=== PATIENT | male | born 1930 | race Caucasian/White ===

== ENCOUNTER 2016-12-11 09:46 | Inpatient (IN) | payer MEDICARE, OTHER ==
[~2016-12-11] VITALS: Ht 177.8 cm; Wt 60.1 kg
[~2016-12-11 09:46] MED LIST: AMOXICILLIN 8751 TAB PO; BETAMETHASONE0.1% TP; FAMVIR 500500 MG/TAB PO; NO HOME MEDICATIONS; NORCO 325 MG-51 TAB PO
[2016-12-11] MEDS ORDERED: SINEMET CR 50 M1 TER PO (12:10)
[2016-12-11] MEDS ORDERED: FLOMAX 0.40.4 MG/CAP PO (12:11)
[2016-12-11] MEDS ORDERED: ZESTORETIC 12.51 TAB PO (12:12)
[2016-12-11] MEDS ORDERED: COMTAN 200MG T200 MG PO (12:12)
[2016-12-11] MEDS ORDERED: EXELON9.5 MG/24 TD (12:13)
[2016-12-11] MEDS ORDERED: NEUPRO6 MG/24 HR TD (12:13)
[2016-12-11 13:17] VITALS: BP 117/56; PULSE 79; TEMP 98.8
[2016-12-11 13:24] LABS: PH 5 (5-8); SQUAMOUS EPITHELIAL None Seen /hpf; URINE APPEARANCE Hazy; URINE BACTERIA Rare /hpf; URINE BILIRUBIN Negative (NEGATIVE); URINE BLOOD 3+ (NEGATIVE); URINE COLOR Yellow; URINE GLUCOSE Negative (NEGATIVE); URINE KETONE Trace (NEGATIVE); URINE RBC >50 /hpf; URINE UROBILINOGEN Negative (NEGATIVE); URINE WBC 20-50 /hpf
[2016-12-11 16:14] VITALS: BP 118/46; PULSE 80; TEMP 98.6
[2016-12-11 17:04] VITALS: BP 122/48; PULSE 90
[2016-12-11 17:21] LABS: ADJUSTED CALCIUM 9.4 mg/dL (8.4-10.2); ALBUMIN 3.5 gm/dL (3.5-5.0); BILIRUBIN,TOTAL 1.7 mg/dL (0.0-1.0); CREATININE, serum 1.32 mg/dL (0.66-1.25); POTASSIUM 4.1 mmol/L (3.4-5.0); TOTAL PROTEIN 6.2 gm/dL (6.4-8.2)
[2016-12-11 17:51] LABS: THYROID STIMULATING HORMONE 0.325 uIU/mL (0.465-4.680)
[2016-12-11 20:29] VITALS: BP 113/48; PULSE 102; TEMP 98.9
[2016-12-12] VITALS (7 sets, daily range): BP systolic 107–152; BP diastolic 41–73; PULSE 82–106; TEMP 97.7–99.6
[2016-12-12 08:12] LABS: ADD PATHOLOGY DIFF REVIEW NO; HEMATOCRIT 40.1 % (42.0-52.0); HEMOGLOBIN 13.5 g/dl (13.5-18.0); MEAN CELL VOLUME 96 fl (80.0-100.0); MEAN CORPUSCULAR HEMOGLOBIN 32 pg (27.0-31.0); MEAN CORPUSCULAR HGB CONC 34 g/dl (33.0-37.0); MEAN PLATELET VOLUME 10.1 fl (7.4-10.4); PLATELET COUNT 167 K/mm3 (130-400); RED BLOOD COUNT 4.17 M/mm3 (4.20-5.60); WHITE BLOOD COUNT 15.1 K/mm3 (4.8-10.8)
[2016-12-12 08:50] LABS: CALCIUM 8.9 mg/dL (8.4-10.2); CREATININE, serum 1.18 mg/dL (0.66-1.25); POTASSIUM 3.9 mmol/L (3.4-5.0)
[2016-12-12 10:23] LABS: BAND 19 % (0-10); NEUTROPHILS 78 % (42.0-75.2); PLATELET ESTIMATE NORMAL (NORMAL); TOTAL CELLS COUNTED 100
[2016-12-12 13:54] LABS: TROPONIN-I 0.054 ng/mL (0.000-0.034)
[2016-12-13 07:19] LABS: HEMOGLOBIN 12.5 g/dl (13.5-18.0); MEAN CELL VOLUME 95 fl (80.0-100.0); MEAN CORPUSCULAR HEMOGLOBIN 32 pg (27.0-31.0); MEAN CORPUSCULAR HGB CONC 34 g/dl (33.0-37.0); MEAN PLATELET VOLUME 9.9 fl (7.4-10.4); PLATELET COUNT 170 K/mm3 (130-400); RED BLOOD COUNT 3.86 M/mm3 (4.20-5.60); REDCELL DISTRIBUTION WIDTH-CV 13.9 % (11.5-14.5); WHITE BLOOD COUNT 12.2 K/mm3 (4.8-10.8)
[2016-12-13 07:24] LABS: HEMATOCRIT 36.8 % (42.0-52.0)
[2016-12-13 07:35] LABS: CALCIUM 8.4 mg/dL (8.4-10.2); CREATININE, serum 1.1 mg/dL (0.66-1.25); POTASSIUM 3.5 mmol/L (3.4-5.0)
[2016-12-13 07:51] VITALS: BP 118/53; PULSE 74; TEMP 98.3
[2016-12-13 11:44] VITALS: BP 130/51; PULSE 74; TEMP 97.9
[2016-12-13 16:20] VITALS: BP 139/63; PULSE 90
[2016-12-13 20:21] VITALS: BP 152/71; PULSE 96; TEMP 97.5
[2016-12-14] VITALS (7 sets, daily range): BP systolic 104–169; BP diastolic 57–69; PULSE 71–93; TEMP 97.8–98.4
[2016-12-14] MEDS ORDERED: OMNICEF 300MG300 MG PO (10:00)
[2016-12-14] MEDS ORDERED: SINEMET 25/101 UDTAB PO ×5 (10:03→10:10)
[2016-12-14] MEDS ORDERED: COMTAN 200MG T200 MG PO (10:05)
[2016-12-14] MEDS ORDERED: PRINIVIL10 MG PO (10:06)
[2016-12-15 03:40] VITALS: BP 146/69; PULSE 75; TEMP 98
[2016-12-15 08:10] VITALS: BP 155/69; PULSE 78; TEMP 97.8
[2016-12-15 11:47] VITALS: BP 122/51; PULSE 74; TEMP 98.2
[2016-12-15 12:09] VITALS: BP 122/51; PULSE 74; TEMP 98.2
== END 2016-12-15 13:19 | DRG 871 ==
LOC: MEDICAL 09:46
PROVIDERS: Internal Medicine; Psychiatry & Neurology Neurology
PROC: 0T9B80Z Drainage of Bladder with Drainage Device, Via Natural or Artificial Opening Endoscopic (ICD-10-PCS; principal; 2016-12-12)
DX: A41.51 Sepsis due to Escherichia coli [E. coli] (principal); E43 Unspecified severe protein-calorie malnutrition; N39.0 Urinary tract infection, site not specified; N17.9 Acute kidney failure, unspecified; N13.8 Other obstructive and reflux uropathy; Z68.1 Body mass index [BMI] 19.9 or less, adult; B96.20 Unspecified Escherichia coli [E. coli] as the cause of diseases classified elsewhere; N40.1 Benign prostatic hyperplasia with lower urinary tract symptoms; R33.8 Other retention of urine; I10 Essential (primary) hypertension; G20 Parkinson's disease; F02.80 Dementia in other diseases classified elsewhere, unspecified severity, without behavioral disturbance, psychotic disturbance, mood disturbance, and anxiety
CPT/HCPCS: 99222-AI; 99231-AI; 99232-AI; 99233-AI; J0696; J1644; J7030

== ENCOUNTER 2016-12-29 09:18 | Day surgery (SDC) | payer MEDICARE, OTHER ==
[2016-12-29] VITALS (9 sets, daily range): BP systolic 106–160; BP diastolic 50–78; PULSE 54–78; TEMP 97.5–98.1
[~2016-12-29] VITALS: Ht 175.3 cm; Wt 57.2 kg
[~2016-12-29 09:18] MED LIST changes: +COMTAN 200MG T200 MG PO; +EXELON9.5 MG/24 TD; +FLOMAX 0.40.4 MG/CAP PO; +NEUPRO6 MG/24 HR TD; +OMNICEF 300MG300 MG PO; +PRINIVIL10 MG PO; +SINEMET 25/101 UDTAB PO; +SINEMET CR 50 M1 TER PO; +ZESTORETIC 12.51 TAB PO
[2016-12-29] MEDS ORDERED: CIPRO 500MG TA500 MG PO (11:22)
[2016-12-29] MEDS ORDERED: XANAX .25M0.25 MG/TA PO (11:23)
[2016-12-29] MEDS ORDERED: XANAX 0.5MG0.5 MG PO (11:24)
[2016-12-29] MEDS ORDERED: SINEMET CR 50 M1 TER PO (11:40)
[2016-12-29] MEDS ORDERED: COMTAN 200MG T200 MG PO (11:42)
[2016-12-29] MEDS ORDERED: SEROQUEL 2525 MG/TAB PO (11:45)
[2016-12-30 02:02] VITALS: BP 123/58; PULSE 86; TEMP 98
[2016-12-30 06:02] VITALS: BP 92/51; PULSE 91; TEMP 98.1
[2016-12-30 09:55] VITALS: BP 94/52; PULSE 104; TEMP 97.8
[2016-12-30 13:06] VITALS: BP 152/67; PULSE 84; TEMP 97.7
[2016-12-30 13:25] VITALS: BP 152/67; PULSE 84; TEMP 97.7
== END 2016-12-30 14:32 ==
LOC: SDCO 09:18 → SURG 09:30 → SDCO 16:45 → SURG 12-30 13:22 → SDCO 12-30 14:32
DX: N32.0 Bladder-neck obstruction (principal); N40.1 Benign prostatic hyperplasia with lower urinary tract symptoms; N13.8 Other obstructive and reflux uropathy; N41.1 Chronic prostatitis; I10 Essential (primary) hypertension; E78.00 Pure hypercholesterolemia, unspecified; F32.9 Major depressive disorder, single episode, unspecified; F41.9 Anxiety disorder, unspecified; R33.8 Other retention of urine; G20 Parkinson's disease; G30.9 Alzheimer's disease, unspecified; F02.80 Dementia in other diseases classified elsewhere, unspecified severity, without behavioral disturbance, psychotic disturbance, mood disturbance, and anxiety; Z80.51 Family history of malignant neoplasm of kidney
CPT/HCPCS: OP; J0690; J1100; J2405; J2704; J3010